=== PATIENT | female | born 1970 | race Caucasian/White ===

== ENCOUNTER 2017-05-31 12:57 | Inpatient (IN) | payer SELFPAY ==
[~2017-05-31] VITALS: Ht 157.5 cm; Wt 68.0 kg
[~2017-05-31 12:57] MED LIST: CLIN150 PO; LORTA5 PO; Z.0.NO CURRENT MEDS
[2017-05-31 12:59] VITALS: BP 101/51; PULSE 117; RESP 28; TEMP 98.9; O2SAT 100
[2017-05-31] MEDS ORDERED: SODIUM CHLOR 0.9% 1000 ML INJ 1,000 ML IV ONE ×4 (12:59→13:15)
[2017-05-31] MEDS ORDERED: ETOMIDATE 20 MG/10 ML VIAL IVP ONE (13:00)
[2017-05-31] MEDS ORDERED: ROCURONIUM INJ 100 MG/10 ML VIAL IV ONE (13:00)
[2017-05-31] MEDS ORDERED: SODIUM CHLORIDE 0.9% FLUSH 10 ML FLUSH IVF PRN ×2 (13:00→13:15)
[2017-05-31 13:06] VITALS: O2SAT 100
[2017-05-31] MEDS ORDERED: ROCURONIUM INJ 50 MG/5 ML VIAL ONE (13:11)
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
[2017-05-31 13:15] VITALS: O2SAT 100
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
[2017-05-31] MEDS ORDERED: methylPREDNISolone SOD SUCC 125 MG/2 ML VIAL ONE (13:35)
[2017-05-31 13:54] LABS: AUTOMATED NEUTROPHIL # 4.6 TH/MM3 (1.8-7.7); BASOPHIL # 0.1 TH/MM3 (0-0.2); BASOPHIL % 0.6 % (0.0-2.0); EOSINOPHIL # 0.1 TH/MM3 (0-0.4); EOSINOPHIL % 1.4 % (0.0-4.0); HEMATOCRIT 36.3 % (35.0-46.0); LYMPH % 36.6 % (9.0-44.0); LYMPHOCYTE # 3.3 TH/MM3 (1.0-4.8); MEAN CELL VOLUME 86.6 FL (80.0-100.0); MEAN CORPUSCULAR HEMOGLOBIN 28.7 PG (27.0-34.0); MEAN CORPUSCULAR HGB CONC 33.1 % (32.0-36.0); MONO % 10.9 % (0.0-8.0); NEUT % 50.5 % (16.0-70.0); PLATELET COUNT 281 TH/MM3 (150-450); RED BLOOD COUNT 4.19 MIL/MM3 (4.00-5.30); RED CELL DISTRIBUTION WIDTH 16.2 % (11.6-17.2)
[2017-05-31] MEDS ORDERED: RESP: ALBUTEROL 2.5 MG/3 ML NEB (PRN) INH (14:15)
[2017-05-31] MEDS ORDERED: HYDROmorphone HCL PF 2 MG/ML VIAL IV PUSH ONE (14:15)
[2017-05-31] MEDS ORDERED: CHLORHEXIDINE GLUCONATE 2 % 1 PACK (2 CLOTHS) TOP PRN (14:15)
[2017-05-31] MEDS ORDERED: LACTULOSE SYRUP 20 GM/30 ML CUP PO PRN (14:15)
[2017-05-31] MEDS ORDERED: MISCELLANEOUS NURSING INFORMATION XX SCH (14:15)
[2017-05-31] MEDS ORDERED: MAGNESIUM HYDROXIDE SUSP 30 ML CUP PO PRN (14:15)
[2017-05-31] MEDS ORDERED: DEXTROSE 50% IN WATER 50 ML VIAL(D50) IV PUSH PRN (14:15)
[2017-05-31] MEDS ORDERED: BISACODYL 10 MG SUPP RECTAL PRN (14:15)
[2017-05-31] MEDS ORDERED: GLUCAGON 1 MG/ML VIAL OTHER PRN (14:15)
[2017-05-31] MEDS ORDERED: SENNOSIDES 8.6 MG TAB PO PRN (14:15)
[2017-05-31 14:16] LABS: ALBUMIN 3.4 GM/DL (3.4-5.0); ALT (GPT) 26 U/L (10-53); AST (GOT) 23 U/L (15-37); BICARBONATE 24.4 MEQ/L (21.0-32.0); BLOOD UREA NITROGEN 15 MG/DL (7-18); CALCIUM 8.7 MG/DL (8.5-10.1); CHLORIDE 103 MEQ/L (98-107); GLOMERULAR FILTRATION RATE 59 ML/MIN (>89); GLUCOSE,RANDOM 87 MG/DL (74-106); MAGNESIUM 2.2 MG/DL (1.5-2.5); SODIUM (NA) 139 MEQ/L (136-145)
[2017-05-31] MEDS: RESP: ALBUTEROL 2.5 MG/IPRATROPIUM 0.5 MG NEB (SCH) INH ×2 (14:16→14:17)
[2017-05-31 14:18] LABS: ALKALINE PHOSPHATASE 94 U/L (45-117); TOTAL BILIRUBIN ADULT 0.2 MG/DL (0.2-1.0); TOTAL PROTEIN 7.5 GM/DL (6.4-8.2)
[2017-05-31 14:53] VITALS: BP 104/78; PULSE 103; RESP 24; O2SAT 100
[2017-05-31] MEDS ORDERED: DEXT 5%-NACL 0.9% 1000 ML INJ 1,000 ML IV SCH (15:00)
[2017-05-31] MEDS ORDERED: INSULIN NovoLIN REGULAR SUPPLEMENTAL SCALE SQ SCH (15:00)
[2017-05-31] MEDS ORDERED: FAMOTIDINE 20 MG/2 ML VIAL IV PUSH SCH (15:00)
[2017-05-31 15:14] VITALS: BP 118/66; PULSE 97; RESP 24; O2SAT 100
[2017-05-31] MEDS ORDERED: PROPOFOL 500 MG/50 ML INJ 50 ML ONE (15:17)
[2017-05-31] MEDS ORDERED: PROPOFOL 1000 MG/100 ML BTL IV STA (15:32)
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
[2017-05-31] MEDS ORDERED: RESP: ALBUTEROL 2.5 MG/IPRATROPIUM 0.5 MG NEB (SCH) INH (16:00)
[2017-05-31] MEDS ORDERED: DOCUSATE SODIUM 50 MG/SENNA 8.6 MG TAB PO SCH (21:00)
[2017-06-01] MEDS ORDERED: CHLORHEXIDINE GLUCONATE 2 % 1 PACK (2 CLOTHS) TOP SCH (04:00)
== END 2017-05-31 17:24 | disposition short-term general hospital (02) | DRG 918 ==
LOC: NEPC 12:57 → NEDA 13:58
PROVIDERS: ADMIT Internal Medicine Critical Care Medicine; ATTEND Internal Medicine Critical Care Medicine
PROC: 5A1935Z Respiratory Ventilation, Less than 24 Consecutive Hours (ICD-10-PCS; principal; 2017-05-31)
PROC: 0BH17EZ Insertion of Endotracheal Airway into Trachea, Via Natural or Artificial Opening (ICD-10-PCS; 2017-05-31)
PROC: 0T9B70Z Drainage of Bladder with Drainage Device, Via Natural or Artificial Opening (ICD-10-PCS; 2017-05-31)
PROC: 0D9670Z Drainage of Stomach with Drainage Device, Via Natural or Artificial Opening (ICD-10-PCS; 2017-05-31)
DX: T59.811A Toxic effect of smoke, accidental (unintentional), initial encounter (principal); J70.5 Respiratory conditions due to smoke inhalation; R06.03 Acute respiratory distress; F17.210 Nicotine dependence, cigarettes, uncomplicated; Y92.009 Unspecified place in unspecified non-institutional (private) residence as the place of occurrence of the external cause; T24.002A Burn of unspecified degree of unspecified site of left lower limb, except ankle and foot, initial encounter; R06.89 Other abnormalities of breathing
CPT/HCPCS: 36600; 71045; 80053; 82550; 82552; 82805; 83735; 85025; 94640; 94664; J1170; J2930; J7030